=== PATIENT | female | born 1995 | race Caucasian/White ===

== ENCOUNTER 2016-12-22 11:23 | Emergency (ER) | payer OTHER ==
[~2016-12-22] VITALS: Ht 154.9 cm; Wt 68.0 kg
[2016-12-22 11:23] VITALS: BP 151/72
[2016-12-22] MEDS ORDERED: FLUO20CA42 PO (11:34)
--- NOTE | 2016-12-22 12:04 | ED Neurological Problem ---
General Chief Complaint: Neurological Problems Stated Complaint: SEIZURE Nursing Triage Note: ARRIVED VIA EMS FROM WORK. PT HAS A HX OF FOCAL SEIZURES ET HAD ONE TODAY LASTING A FEW SEC. PT STATES SHE HAS A DR'S APPT TOMORROW. REFUSED IV WITH EMS. Nursing Sepsis Screen: No Definite Risk Source: patient Exam Limitations: no limitations History of Present Illness Time seen by provider: 11:30 Initial Comments 21 yo female patient presents to the ED via EMS with reports of having a seizure while at class. Patient states she has been dx with focal seizures where she sits and stares off into space. States she normally does not come to the ED for the seizures. Reports seizures "don't happen that often." Last seizure was 1 mo ago and was admitted at [place]. Patient states she has had multiple ED visits and has been seen by Dr. William and Dr. Salter all at [facility] in [place], [place]. She reports having symptoms for 6 years now. Per patient she has had multiple CT head's, MRI's of the brain, EEG's, EKG 's, labs, and sleep deprived EEG's with all normal results. 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 Does not take any medications for the seizures and states she has never been prescribed medications for them. States the seizure today only lasted a few seconds, but was post-ictal when the ambulance arrived. States otherwise she would have refused transport. Denies bowel or bladder incontinence. Denies biting her tongue. Patient reports having an appointment tomorrow with her psychiatrist Dr. Hughes in [place]. Denies any known fall or injury. Patient denies being told she couldn't drive due to seizures. Denies any precipitating factors to the seizures. Timing/Duration: episodic, other (resolved at this time.) Allergies and Home Medications Allergies Coded Allergies: No Known Drug Allergies (Unverified , 12/22/16) Home Medications Fluoxetine HCl 20 Mg Capsule, 20 MG PO, (Reported) Constitutional: No chills, No diaphoresis, No dizziness, No fever, No malaise, No weakness Eyes: No Symptoms Reported Ears, Nose, Mouth, Throat: no symptoms reported Respiratory: No cough, No dyspnea on exertion, No short of breath Cardiovascular: No chest pain, No palpitations Gastrointestinal: No abdominal pain, No constipation, No diarrhea, No nausea, No vomiting Genitourinary: no symptoms reported Musculoskeletal: No back pain, No joint pain, No neck pain Skin: no symptoms reported Psychiatric/Neurological: See HPI, Denies Cognitive Dysfunction, Denies Headache, Denies Numbness, Denies Tingling, Denies Unable to Move Lower Ext, Denies Unable to Move Upper Ext, Denies Weakness, Other (focal seizure) All Other Systems Reviewed Negative Unless Noted: Yes (Negative excepted noted.) Past [id number]-[id number] Hx Patient Social History Alcohol Use: Denies Use Recreational Drug Use: No Smoking Status: Never a Smoker Recent Foreign Travel: No Contact w/Someone Who Travel: No Recent Infectious Disease Expo: No Surgeries History of Surgeries: No Respiratory History of Respiratory Disorde: No Cardiovascular History of Cardiac Disorders: No Neurological History of Neurological Disord: Yes Neurological Disorders: Seizure Disorder (focal seizures) Genitourinary History of Genitourinary Disor: No Gastrointestinal History of Gastrointestinal Di: No Musculoskeletal History of Musculoskeletal Dis: No Endocrine History of Endocrine Disorders: No HEENT History of HEENT Disorders: No Cancer History of Cancer: No Psychosocial History of Psychiatric Problem: No Behavioral Health Disorders: Anxiety, PTSD, Depression Integumentary History of Skin or Integumenta: No Reviewed Nursing Assessment Reviewed/Agree w Nursing PMH: Yes Family Medical History Significant Family History: No Pertinent Family Hx Physical Exam Vital Signs Vital Sign - Last 12Hours 12/22/16 11:23 Temp 98.0 Pulse 80 Resp 18 B/P (MAP) 151/72 Pulse Ox 97 Capillary Refill : Less Than 3 Seconds General Appearance: WD/WN, no apparent distress HEENT: PERRL/EOMI, normal ENT inspection, TMs normal, pharynx normal, other ( normocephalic, atraumatic) Neck: non-tender, full range of motion, supple, normal inspection Respiratory: lungs clear, normal breath sounds, no respiratory distress, no accessory muscle use Cardiovascular: normal peripheral pulses, regular rate, rhythm, no edema, no murmur Gastrointestinal: normal bowel sounds, non tender, soft, no organomegaly Back: normal inspection, no vertebral tenderness Extremities: no pedal edema, no calf tenderness, normal capillary refill, pelvis stable Neurologic/Psychiatric: miller wood flour II-XII nml as tested, no motor/sensory deficits, alert, oriented x 3, depressed affect Crainal Nerves: normal hearing, normal speech, PERRL Coordination/Gait: normal finger to nose, normal gait, negative Romberg's sign Motor/Sensory: no motor deficit, no sensory deficit, no pronator drift Skin: normal color, warm/dry, No ecchymosis (no evidence of trauma noted. ) Progress/Results/Core Measures Results/Orders Vital Signs/I&O Vital Sign - Last 12Hours 12/22/16 11:23 Temp 98.0 Pulse 80 Resp 18 B/P (MAP) 151/72 Pulse Ox 97 Blood Pressure Mean: 98 Departure Communication (Admissions) Progress Notes patient seen and evaluated. I have discussed the plan for drawing labs, checking a UA, and obtaining an ECG. Patient refuses all labs and diagnostic studies. Patient states "my parents are both doctors and they are getting tired of all the ER visits." Patient states her mother is an ED physician in [place], [place] and her father is a family practitioner in [place], [place]. Patient denies contacting them to notify them of the incident today or ED visit. She states " I was going to, but my mom is working today and probably can't answer the phone. " I discussed all risks, benefits, and possible complications associated with leaving against medical advise versus staying for all testing. Questions answered at the time of visit. Patient verbalizes understanding and states she wishes to leave AGAINST MEDICAL ADVICE. States she has class at noon and has multiple classes/appointments this afternoon. Patient subsequently left AGAINST MEDICAL ADVICE. Dr. Ahuja notified of patient's refusal for testing and leaving AGAINST MEDICAL ADVICE. Impression Impression: Primary Impression: Left against medical advice Additional Impression: Hx of seizure disorder Disposition: AGAINST MEDICAL ADVICE Condition: Against Medical Advice Departure-Patient Inst. Referrals: NO,LOCAL PHYSICIAN (PCP/Family) Primary Care Physician JERRY ROBERTO Dec 22, 2016 12:03
== END 2016-12-22 11:58 | disposition left against medical advice (07) ==
LOC: ER 11:25
DX: G40.909 Epilepsy, unspecified, not intractable, without status epilepticus (principal); F41.9 Anxiety disorder, unspecified; F43.10 Post-traumatic stress disorder, unspecified; F32.9 Major depressive disorder, single episode, unspecified
CPT/HCPCS: 99283